=== PATIENT | female | born 1965 | race Caucasian/White ===

== ENCOUNTER 2025-02-21 03:59 | Inpatient (IN) | payer BC ==
[~2025-02-21] VITALS: Ht 166.4 cm; Wt 106.8 kg
[2025-02-21] VITALS (20 sets, daily range): BP systolic 113–142; BP diastolic 52–74; PULSE 62–93; RESP 14–23; TEMP 97.8–98.2; O2SAT 93–97
[2025-02-21 04:33] LABS: MEAN PLATELET VOLUME 8.9 FL (7.4-10.4); RED CELL DISTRIBUTION WIDTH 13.2 % (11.5-14.5)
[2025-02-21 04:35] LABS: LEUKOCYTE ESTERASE ,URINE NEGATIVE (Neg); NITRITES, URINE NEGATIVE (Neg); OCCULT BLOOD,URINE TRACE-INTACT (Neg); URINE HCG NEGATIVE (NEG)
[2025-02-21 04:37] LABS: UA COLLECTION TYPE NON-SPECIFIED
[2025-02-21 04:50] LABS: CREATININE 0.70 MG/DL (0.40-0.90); TOTAL CARBON DIOXIDE 23.3 MMOL/L (24-32); eCRCL 77 ML/MIN; eGFR 85 ML/MIN
[2025-02-21 04:52] LABS: SQUAMOUS EPITHELIAL CELL,UR FEW /LPF (FEW)
[2025-02-21] MEDS ORDERED: iohexol 300mg/ml 100ml inj. ONE (05:00)
--- NOTE | 2025-02-21 05:17 | Physician Documentation ---
History of Present Illness Chief Complaint: Abdominal Pain Stated Complaint: HERNIA PAIN Time Seen by MD: 04:55 Mode of Arrival: POV HPI 59 year old female reports abdominal pain since last night. She has a history of a failed hernia mesh repair. The hernia normally is easily reducible, but she has not been able to reduce it since the pain started. Denies fever, reports nausea but no vomiting, and denies diarrhea, cough, shortness of breath. Medication Reconciliation Allergies: Coded Allergies: No Known Allergies (Unverified , 02/21/25) Review of Systems All Other Systems at this time: Reviewed and Negative Physical Exam Vital Signs: RN Vital Signs have been reviewed: Yes, Temperature: 98.0, Source: Temporal, Heart Rate: 90, Respiratory Rate: 16, BP: 161/82, Pulse Oximetry: 98, Weight: 106.600 Oxygen Flow Rate: 0 Physical Exam Gen: no distress HEENT: PERRL, EOMI Pulm: no distress CTAB Cardiac: RRR no m/c/r Abdomen: soft, [id number] hernia which is not reducible MSK: no deformity Skin: w/d/i Neuro: nonfocal Psych: unremarkable Progress Results/Orders Results/Orders Orders - ANDREI SHIRLEY MD Abdomen,Single View(Kub) (02/21/25 04:25) Ct Abdomen Pelvis (02/21/25 04:55) Lacticsepsis (02/21/25 04:58) Normal Saline 1000ml (0.9% Sodium Chlori (02/21/25 05:00) Completed Orders - ANDREI SHIRLEY MD Hcg, Ur Ql (02/21/25 04:07) Cbc/Diff (02/21/25 04:07) BMP (02/21/25 04:07) Lipase (02/21/25 04:07) CMP (02/21/25 04:07) Abdomen,Single View(Kub) (02/21/25 04:25) Ua W/Microscopic, Cult If Ind (02/21/25 04:18) Hydromorphone 1 Mg/Ml/Pf (Dilaudid Inj.) (02/21/25 05:00) Iohexol 300mg/Ml 100ml Inj. (Omnipaque-3 (02/21/25 05:00) Vital Signs 02/21/25 02/21/25 04:03 04:37 Temp 98.0 Pulse 90 Resp 16 B/P (MAP) 161/82 Pulse Ox 98 O2 Flow Rate 0 Laboratory Tests Test 02/21/25 04:13 02/21/25 04:18 White Blood Count 13.7 H Red Blood Count 4.69 Hemoglobin 13.8 Hematocrit 41.0 Mean Corpuscular Volume 87.4 Mean Corpuscular Hemoglobin 29.4 Mean Corpuscular Hemoglobin Concent 33.6 Red Cell Distribution Width 13.2 Platelet Count 305 Mean Platelet Volume 8.9 Neutrophils (%) (Auto) 83.4 H Lymphocytes (%) (Auto) 11.7 L Monocytes (%) (Auto) 4.1 Eosinophils (%) (Auto) 0.3 Basophils (%) (Auto) 0.5 Neutrophils # (Auto) 11.4 H Lymphocytes # (Auto) 1.6 Monocytes # (Auto) 0.6 Eosinophils # (Auto) 0.0 Basophils # (Auto) 0.1 CBC Comment Sodium Level 136 Potassium Level 3.8 Chloride Level 103 Carbon Dioxide Level 23.3 L Anion Gap 10 Blood Urea Nitrogen 12 Creatinine 0.70 Estimated GFR/1.73 m2 85 BUN/Creatinine Ratio 17.1 Glucose Level 214 H Calcium Level 9.2 Total Bilirubin 0.8 Aspartate Amino Transf (AST/SGOT) 28 Alanine Aminotransferase (ALT/SGPT) 38 Alkaline Phosphatase 94 Total Protein 7.7 Albumin 4.0 Globulin 3.7 Albumin/Globulin Ratio 1.1 Lipase 25 Chemistry Comments Urine Specimen Description Non-specified Urine Color Yellow Urine Clarity Clear Urine pH 5.5 Urine Specific Lewis 1.025 Urine Protein Negative Urine Glucose (UA) 100 H Urine Ketones Trace H Urine Occult Blood Trace-intact Urine Nitrite Negative Urine Bilirubin Negative Urine Urobilinogen 0.2 Urine Leukocyte Esterase Negative Urine RBC 0-2 Urine WBC None seen Urine Squamous Epithelial Cells Few Urine Bacteria None seen Urine Culture Indicated Not ind Volume Urine Centrifuged 10 ml Urine HCG, Qualitative Negative Urine Comment Medical Decision Making Additional information obtaine: N/A Findings 59 year old female with abdominal pain and likely incarcerated hernia. Workup demonstrated leukocytosis. Plain film nonspecific, awaiting CT results but by my interpretation demonstrates periumbilical hernia with some fat stranding. IVF and pain meds, will contact surgeon diamond grinder and transfer care to hospitalist. Differential Dx:Considerations: Appendicitis, Bowel obstruction, Cholelithasis, Diverticular disease, Esophagitis, Gastritis/PUD, Gastroenteritis, Hernia, Hepatitis, Inflammatory BD, Ischemic bowel, Pancreatitis, Urinary obstruction, Urinary tract infection Departure Disposition: 09 ADMITTED INPATIENT Admitted to Inpatient Unit: to hospitalist, to surgeon Admission Level of Care: Med/Surg Impression: Primary Impression: Incarcerated hernia Condition: Stable Referrals: NO PRIMARY CARE PROVIDER (PCP) Education Educated: Patient Educated regarding: diagnosis, treatment, prognosis, need for follow up Signature Scribe Signature: . Attestation: . ANDREI SHIRLEY MD Feb 21, 2025 05:17
[2025-02-21] MEDS: normal saline 1000ml 1,000 ML IV ONE (05:24)
--- NOTE | 2025-02-21 06:16 | Physician Documentation ---
Addendum Received patient in sign out from outgoing ED physician, Dr. Estrella. Please see their note (and other providers) for further specific details regarding initial encounter. HPI/Course In Brief: 59 year old female reports abdominal pain since last night. She has a history of a failed hernia mesh repair (repair was done in [place] about eight years ago, began having episodes of herniation around five years ago). The hernia normally is easily reducible, but she has not been able to reduce it since the pain started (about 10:00 p.m. yesterday). Denies fever, reports nausea but no vomiting, and denies diarrhea, cough, shortness of breath. She last ate yesterday about 3:00 a.m. in the afternoon. Last bowel movement was yesterday. ED COURSE: 02/21/2025, 7:55 a.m.: I spoke with our surgeon on-call, Dr. Zuluaga who said he would come in in approximately 1 hour and take the patient to the OR. I Informed the patient of: 1. Nature of abnormal findings 2. Implications of the findings 3. Possible consequences of not receiving additional diagnosis and/or treatment, or following the current treatment plan. 4. Explanation of management options and provision of appropriate referral resources as indicated 5. Their responsibility to receive follow-up care Discussed harm reduction to this emergency department visit today. Patient expresses understanding and agrees to plan. All questions answered to the best of my ability. Discharged in stable condition with strict ED return precautions and close outpatient follow-up with primary care. EMR and [employer] Attestation - this medical document was created using an [employer] medical record system with [employer] computerized dictation system. Although this document has been carefully reviewed, there may still be some phonetic and typographical errors. These errors are purely typographical, due to imperfections of the software programs, and do not reflect any compromise in the patient's medical care. Note to Patients: Physician notes are written for the purpose of communication between medical providers and billing purposes. There may be aspects of this documentation that are simplified for efficiency and clarity. Physician notes are not intended to capture the entirety of your experience in the hospital. If you have questions about the way your medical condition and care was documented, please do not hesitate to bring this up at your next visit with your physician. Departure Disposition: 09 ADMITTED INPATIENT Admitted to Inpatient Unit: to hospitalist, to surgeon Admission Level of Care: Med/Surg Impression: Primary Impression: Incarcerated hernia Condition: Fair ERIC TENORIO MD Feb 21, 2025 06:16
--- NOTE | 2025-02-21 06:38 | RADIOLOGY REPORT ---
Date: 02/21/2025 04:23 AM Examination: DI ABDOMEN,SINGLE VIEW(KUB) History: Abdominal Pain COMPARISON: None TECHNIQUE: Frontal views of the abdomen was obtained. FINDINGS: Bowel gas pattern is unremarkable. The lung bases are unremarkable. No acute osseous abnormality identified. IMPRESSION: Nonobstructive bowel gas pattern. Large stool burden
--- NOTE | 2025-02-21 06:45 | RADIOLOGY REPORT ---
EXAM: CT CT ABDOMEN PELVIS W/ IV CONTRAST History: abdominal pain pt has HX of hernia COMPARISON: DI ABDOMEN,SINGLE VIEW(KUB) on DOS: 02/21/25 TECHNIQUE: Multidetector spiral CT of the abdomen and pelvis was performed from lung bases to pubic symphysis. Intravenous contrast was administered during this examination. Portal venous imaging was obtained. Axial, coronal and sagittal multiplanar reformats were performed by the technologist on a separate workstation. Radiation Dose : 1. Abdomen/Pelvis: CTDIvol 36.7 mGy, DLP 1853 mGy*cm. FINDINGS: Lung Bases: No acute or significant lung base finding. Mild left basilar atelectasis. Normal heart size. No pleural or pericardial effusion. Liver: Unremarkable Gallbladder and Biliary Tree: Cholecystectomy. No biliary ductal dilatation Spleen: Unremarkable Pancreas: Unremarkable Adrenal Glands: Unremarkable Kidneys: Simple left-sided parapelvic renal cyst. Kidneys are otherwise unremarkable. Bladder: Unremarkable Bowel: Small hiatal hernia. There is moderate sized right periumbilical hernia containing short segment of mildly dilated small bowel loops, favored to represent a partial obstruction. Scattered colonic diverticulosis. No diverticulitis Remainder of the bowel is unremarkable. Normal appendix. Ascites: Absent Lymphadenopathy: No mesenteric, retroperitoneal or periportal lymphadenopathy. Vasculature: The visualized abdominal aorta is normal in size and caliber. Abdominal and pelvic vessels demonstrate normal enhancement. Pelvic Organs: Hysterectomy. No adnexal masses. Musculoskeletal: No aggressive focal bony lesions, acute fractures or dislocation. IMPRESSION: Moderate-sized right periumbilical hernia containing short segment of mildly dilated small bowel loops, favored to represent a partial small-bowel obstruction. Small hiatal hernia. Scattered colonic diverticulosis. No diverticulitis Hysterectomy Cholecystectomy Radiation optimization: All CT scans at this facility use at least one of these dose optimization techniques: automated exposure control mA and/or kV adjustment per patient size (includes targeted exams where dose is matched to clinical indication) or iterative reconstruction.
[2025-02-21] MEDS ORDERED: NO HOME MEDS (08:05)
[2025-02-21] MEDS ORDERED: magnesium sulf-water 4G/100mL 100 ML IV PRN (08:15)
[2025-02-21] MEDS ORDERED: bisacodyl 10mg suppository rectal RC PRN (08:15)
[2025-02-21] MEDS ORDERED: magnesium hydroxide 30ml (MOM) UD suspension PO PRN (08:15)
[2025-02-21] MEDS ORDERED: magnesium sulf-water 2g/50mL 50 ML IV PRN (08:15)
[2025-02-21] MEDS ORDERED: acetaminophen 650mg rectal suppository RC PRN (08:15)
[2025-02-21] MEDS ORDERED: ondansetron/PF 4mg/2ml inj IV PRN ×2 (08:15→10:15)
[2025-02-21] MEDS ORDERED: mag hydrox/Alum hydrox/simeth 30ml oral suspension PO PRN (08:15)
[2025-02-21] MEDS ORDERED: magnesium Cl slow-release 64mg tablet PO PRN (08:15)
[2025-02-21] MEDS ORDERED: potassium Cl 20 mEq SR tablet PO PRN ×2 (08:15)
[2025-02-21] MEDS ORDERED: HYDROcodone/acetaminophen 5mg/325mg tablet PO PRN (08:15)
[2025-02-21] MEDS: normal saline 1000ml 1,000 ML IV SCH (08:29)
--- NOTE | 2025-02-21 08:30 | HISTORY AND PHYSICAL ---
History & Physical Providers to Chief complaint, abdominal pain, nausea, constipation ~ History of Present Illness Reason for Admit\Complaint: As above History of Present Illness This is a 59 year old female, relatively in good health on no home medication with history over inguinal hernia repair which failed, history of hypertension uncontrolled, morbid obesity BMI 39, chronic constipation, status post cholecystectomy hysterectomy, hiatal hernia, diverticulosis, presented today to emergency department chief complaint abdominal pain associated with nausea and constipation; in addition patient reports abdominal pain since last night. She has a history of a failed hernia mesh repair (repair was done in [place] about eight years ago, began having episodes of herniation around five years ago). The hernia normally is easily reducible, but she has not been able to reduce it since the pain started (about 10:00 p.m. yesterday). Denies fever, reports nausea but no vomiting, and denies diarrhea, cough, shortness of breath.She last ate yesterday about 3:00 a.m. in the afternoon. Last bowel movement was yesterday. Moment she was evaluated by physician including CT abdomen pelvis completed, diagnosed with a small-bowel obstruction, incarcerated [place] umbilical hernia, and after consultation with the general surgeon decision was made to admit patient for further evaluation and treatment including to be taken to OR for hernia repair. No additional complaint or concern Allergies: Coded Allergies: No Known Allergies (Unverified , 02/21/25) Active prescriptions Non Home Medications Home Medications Active Reported No Home Medications (Home Med List) Each Past Medical History Past Medical History As in HPI Past Surgical History Surgical History Comment As in HPI Past Social History Social History Comment Deny illicit drug abuse tobacco alcohol use live with the family good social support Health Maintenance Health Maintenance Noncontributory ROS ROS Constitutional : no fever , no chills, or weakness. No diaphoresis. Allergic/Immunologic, no lymphadenopathy, no hives, no skin eruptions. Eyes, no recent visual changes, no eye pain, no photophobia. Ears, nose, mouth, throat, no sore throat, no nosebleed, no ear pain. Cardiovascular, no palpitations, skipped beats, chest pain, no peripheral edema, Respiratory, no dyspnea, orthopnea, cough, hemoptysis, chest wall pain. Gastrointestinal, positive for abdominal pain, nausea, constipation. : no dysuria, hematuria, pelvic pain, urethral d/c. Endocrine, no polyuria, polydipsia, recent unintentional weight gain or loss. Hematologic/Lymphatic, no petechiae, no enlarged lymph nodes, no bone pain. Integumentary, no rash, no skin lesions, Musculoskeletal, no muscle aches, or pain, no muscle cramps, no recent change in gait Neurological, no dizziness, no headache, no syncope, no paresthesia. Psychiatric, no delusions, visual hallucinations, or hearing hallucinations. ROS - in rest is as in HPI. Exam Vitals: Vital Signs Date Time Temp Pulse Resp B/P (MAP) Pulse Ox O2 Delivery O2 Flow Rate FiO2 02/21/25 08:04 80 16 135/82 (99) 95 0 02/21/25 05:29 98.0 Vital signs, stable ,afebrile. Pulse Oximetry reflects adequate oxygenation. BMI is 39, weight 106 kg General: well developed, well nourished. Awake , alert, and oriented x4, resting comfortably in the bed, in no acute distress . Skin: Warm, dry, no pallor, no rash or petechiae. HEENT: Atraumatic, normocephalic, EOMI, anicteric sclera B; pink conjunctiva; PERRLA, normal oropharynx, moist oral and nasal mucosa. Tympanic membrane , nose , throat clear. Neck: Trachea midline. Supple, full range of motion, no JVD, bruit , hepatojugular reflex , lymphadenopathy or masses, or other lesions Cardiac: Regular rhythm, regular rate no murmurs, rubs, or gallops. Normal S1 and S2, no S3 noticed. PMI is normal. Respiratory: Equal breath sounds bilaterally, no tachypnea; lungs clear to auscultation bilaterally, no wheezing ,rub or rales, or crackles. Chest wall is symmetric and without deformity. No signs of trauma. Chest wall is nontender. No signs of respiratory distress. Resonance is normal upon percussion bilaterally. Gastrointestinal: Abdomen symmetric, non-distended, soft, mild tender to palpation periumbilically, normal bowel sounds x4 quadrant, normoactive, no hepatosplenomegaly , no masses , no bruit, no flank pain bilaterally. No voluntary guarding, rebound, or rigidity. No tenderness to percussion. No pulsatile masses. Equal femoral pulses. No Tucker's sign or McBurney point tenderness. Back; no CVA tenderness bilaterally, no deformities. Neck and back are without deformity as well. No tenderness noted on palpation of the spinous processes. Spinous processes are midline. Cervical, thoracic, and lumbar paraspinal muscles are not tender and are without spasm. : Not indicated Musculoskeletal: Extremities, normal range of motion, non-tender, muscle strength 5/5 x 4. Negative Homans signs bilaterally on lower extremity. Distal pulses full symmetrical, no clubbing, cyanosis , edema. Neurological: Speech is clear, alert, and oriented x 4. No motor or sensory deficit, deep tendon reflexes normal, cerebellar intact. Cranial nerves II-XII intact. Psych: Alert and or appropriate, normal affect. Vascular: Good distal pulses, which are equal x4; capillary refill less than 2 seconds. Lymphatic, no lymphadenopathy. Diagnostic Data Last Recorded Lab Results: 02/21/2541202/21/25412 Advance Care Planning Advanced Care plannin - 30 Minutes Additional Plan Assessment Acute abdominal pain Nausea Incarcerated periumbilical hernia Small-bowel obstruction Chronic constipation in exacerbation Status post failed inguinal hernia repair with mesh Hypertension uncontrolled Morbid obesity BMI 39 Mild leukocytosis Dehydration associated with ketonuria Additional comorbidities, history of cholecystectomy hysterectomy hiatal hernia, diverticulosis Plan IV fluids keep patient well hydrated euvolemic Patient NPO Pain control IV analgesics IV Protonix Laxatives General surgeon is on the case we will take patient to OR today Additional lab work pending PT evaluation and treatment I reconciled home medications DVT gastropathy prophylaxis addressed Sepsis Screening Reassessment Date: Feb 21, 2025 Date of Service: Feb 21, 2025 Billing Provider: KEVIN MARTINEZ MD Common Visit Codes: [id number] INP/OBS CARE (HIGH) Secondary Visit Codes: [id number] CARE PLAN 30 MINUTES KEVIN MARTINEZ MD Feb 21, 2025 08:30
[2025-02-21] MEDS: ondansetron/PF 4mg/2ml inj IV ONE (08:35)
[2025-02-21 08:59] LABS: APTT 24 SECONDS (22-32); INR 1.0 INR
--- NOTE | 2025-02-21 09:05 | ELECTROCARDIOGRAPH REPORT ---
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 EVA Ty Measurements Intervals Milligan Rate: 79 P: 60 AR: 172 QRS: 6 QRSD: 98 T: 27 QT: 377 QTc: 433 Interpretive Statements Sinus rhythm Ventricular premature complex Probable left atrial enlargement Borderline T abnormalities, anterior leads Electronically Signed On 02-22-2025 17:41:[address] EVA Ty Please click the below link to view image of tracing.
[2025-02-21 09:10] LABS: PHOSPHORUS 3.6 MG/DL (2.3-4.5); PRO BRAIN NATRIURETIC PEPTIDE 130.0 PG/ML (0-125)
--- NOTE | 2025-02-21 09:23 | RADIOLOGY REPORT ---
CLINICAL INFORMATION: Preoperative examination. TECHNIQUE: Single AP portable chest radiograph was obtained. COMPARISON: None FINDINGS: Lungs: Atelectasis in the lung bases. No focal consolidation. Cardiac: Heart size is within normal limits. Pulmonary vasculature: Unremarkable. Mediastinum/berna: Unremarkable. Bones: No acute osseous abnormality identified. Other: No other significant findings. IMPRESSION: No evidence of acute disease in the chest.
[2025-02-21] MEDS ORDERED: BUPIVAcaine/PF 2.5mg/ml (0.25%) 10ml vial ONE (09:33)
[2025-02-21] MEDS ORDERED: BUPIVACAINE liposomal/PF 13.3 MG/ML 10mL vial IM ONE (09:34)
[2025-02-21] MEDS ORDERED: rocuronium 10mg/ml inj IV ONE (10:09)
[2025-02-21] MEDS ORDERED: propofol inj 20 ML IV ONE (10:09)
[2025-02-21] MEDS ORDERED: midazolam 1 mg/ML 2ml injection ONE (10:11)
[2025-02-21] MEDS ORDERED: fentaNYL /PF 50mcg/ml 5ml ampule ONE (10:11)
[2025-02-21] MEDS ORDERED: hydrALAZINE 20mg/ml inj. IV PRN (10:15)
[2025-02-21] MEDS ORDERED: fentaNYL/PF 50MCG/1 ML 2ML syringe IV PRN ×2 (10:15)
[2025-02-21] MEDS ORDERED: labetalol 20mg/4ml (5mg/ml) syringe IV PRN (10:15)
[2025-02-21] MEDS ORDERED: morphine 4 MG/ML inj SYRINge IV PRN (10:15)
--- NOTE | 2025-02-21 10:25 | PROGRESS NOTE ---
Progress Note ID Providers to CC ~ Progress Note Progress Note: pt seen and examined-findings consistent with incarcerated recurrent umbilical hernia with sbo-pt needs robo-possible repair-discussed procedure including risks/benefits/alternatives VANESA PURVIS MD Feb 21, 2025 10:25
[2025-02-21] MEDS ORDERED: vancomycin 1,000mg inj ONE (11:58)
[2025-02-21] MEDS ORDERED: dexamethasone sod phosphate 4mg/ml inj. ONE (12:40)
[2025-02-21] MEDS ORDERED: ondansetron/PF 4mg/2ml inj ONE (12:40)
[2025-02-21] MEDS ORDERED: glycopyrrolate 0.2mg/ml inj ONE (12:41)
--- NOTE | 2025-02-21 13:13 | OPERATIVE REPORT ---
Operative Report Providers to CC ~ Date of Procedure: Feb 21, 2025 Pre-Operative Diagnosis: recurrent umbilical hernia with sbo Post-Operative Diagnosis SAME as PRE-Op Procedure Performed robo repair recurrent incarcerated umbilical hernia/dex Surgeon: nick Shah none Anesthesiologist: Christiano Hammonds Findings: incarcerated recurrent umbilical hernia/extensive adhesions Estimated Blood Loss: min Specimen Removed: omentum with mesh VANESA PURVIS MD Feb 21, 2025 13:13
[2025-02-21] MEDS ORDERED: HYDROmorphone inj. 0.5 MG/0.5 ML DISP.SYRIN IV PRN (13:20)
[2025-02-21] MEDS ORDERED: ketorolac trometh 30MG/ML vial 30 MG/ML VIAL IV PRN (13:20)
[2025-02-21] MEDS: acetaminophen 1,000mg/100ml IV 100 ML IV PRN (13:39)
[2025-02-21] MEDS: ringers solution, lacted 1,000 ML IV SCH (14:11)
[2025-02-21] MEDS: ceFOXitin 2GM-NS 100mL ADDvant 100 ML IV SCH (15:22)
[2025-02-21] MEDS: K and/or MAG REPLACEMENT MC SCH (19:50)
[2025-02-21] MEDS: docusate sod 100mg capsule PO SCH (20:06)
[2025-02-22 02:00] VITALS: BP 120/62; PULSE 77; RESP 16; TEMP 98.2; O2SAT 97
[2025-02-22 05:49] LABS: MEAN PLATELET VOLUME 9.1 FL (7.4-10.4); RED CELL DISTRIBUTION WIDTH 13.2 % (11.5-14.5)
[2025-02-22 06:14] LABS: CREATININE 0.68 MG/DL (0.40-0.90); TOTAL CARBON DIOXIDE 27.0 MMOL/L (24-32); eCRCL 79 ML/MIN; eGFR 88 ML/MIN
--- NOTE | 2025-02-22 07:12 | CONSULTATION ---
DATE OF CONSULTATION: 02/21/2025 DICTATING PHYSICIAN: Sudheer Zuluaga MD REASON FOR CONSULTATION: Recurrent umbilical hernia. HISTORY OF PRESENT ILLNESS: The patient is a 59-year-old female with history of hypertension who had an umbilical hernia repaired 8 to 10 years ago. The patient developed episode of recurrence. She presented to the ER with complaints of abdominal discomfort and the inability to reduce the recurrent umbilical hernia. Surgical evaluation is now requested. On further questioning, the patient states the pain is improved now compared to what it was. She had the hernia repaired, she believes laparoscopically. They have used mesh with the abdominal surgery. PAST MEDICAL HISTORY: Hypertension, obesity, diverticulosis. PAST SURGICAL HISTORY: Hernia repair as outlined above, previous cholecystectomy, hysterectomy. HOME MEDICATIONS: None. ALLERGIES: None. SOCIAL HISTORY: No alcohol or drug use. PHYSICAL EXAMINATION: GENERAL: Well-nourished female, in no distress. VITAL SIGNS: Unremarkable. HEART: Regular rate and rhythm. LUNGS: Clear to auscultation. ABDOMEN: Shows a recurrent umbilical hernia, which appears to be incarcerated. Minimal tenderness at the present time. EXTREMITIES: Unremarkable. NEUROLOGIC: Nonfocal. LABORATORY DATA: WBC 13, hematocrit 41, platelet count is 305. Chemistries: CO2 is 23, lactate 1.3. LFTs are unremarkable. IMAGING STUDIES: CT of the abdomen and pelvis confirms the presence of recurrent umbilical hernia with probable small bowel obstruction. IMPRESSION: * Recurrent incarcerated umbilical hernia with small bowel obstruction. * Hypertension. * Obesity. RECOMMENDATIONS: Surgical repair. Sudheer Zuluaga MD TID: [id number] RECEIPT: [id number] KB/YEL
[2025-02-22 08:00] VITALS: RESP 16; O2SAT 95
--- NOTE | 2025-02-22 08:10 | OPERATIVE REPORT ---
DATE OF SURGERY: 02/21/2025 DICTATING PHYSICIAN: Sudheer Zuluaga MD PREOPERATIVE DIAGNOSIS: Incarcerated recurrent umbilical hernia with small bowel obstruction. POSTOPERATIVE DIAGNOSIS: Incarcerated recurrent umbilical hernia with small bowel obstruction. PROCEDURES PERFORMED: Robotic repair of incarcerated recurrent umbilical hernia with lysis of adhesions. SURGEON: Sudheer Zuluaga MD SUGAR CANE PLANTER: None. ANESTHESIA: General/Dr. Hammonds. DRAINS: None. INDICATIONS FOR OPERATION: A 59-year-old female with a history of a previous umbilical hernia repair with evidence of recurrence, presented to the ER for evaluation and was taken to surgery for surgical repair. INTRAOPERATIVE FINDINGS: The patient had multiple fascial defects, the total diameter of which was more than 10 cm. Bowel was present, but the bowel was viable after it was reduced. The patient had some old mesh, which was removed with underlying omentum. DESCRIPTION OF PROCEDURE: The patient was placed supine on the operating room table. After induction of general anesthesia and placement of an endotracheal tube, the abdomen was prepped and draped. A subxiphoid incision was then made and a Vivek port placed using open technique. Pneumoperitoneum was begun by insufflation of CO2. Additional ports were placed in the left lateral abdomen. Ports were placed under laparoscopic vision. The robot was then brought to the field. The camera port was docked. The camera was placed and the camera was targeted. Additional ports were then docked and instruments placed. The abdomen was then explored. The patient had extensive adhesions, and these were taken down using combination of sharp dissection and electrocautery. The small bowel, which was in one of the defects, was also reduced using gentle traction. The patient had multiple fascial defects that were subsequently defined. The defects were then closed using a running suture of 0 V-Loc. An 18-inch suture was used to close the defects. The suture line was then oversewn with a second 18-inch 0 V-Loc. Because of the extensive adhesions and concern for a possible enterotomy, mesh was not used. The then used to mobilize the mesh attached to the omentum. The abdomen was irrigated with a large amount of antibiotic-containing solution. Robotic instruments were removed, robot then removed from the field. Mesh and omentum were placed in an Endobag using the laparoscope. Ports were then removed. The mesh was removed through the Endobag. The pneumoperitoneum was evacuated. The wounds were closed in layers. The skin was closed with a subcuticular stitch and dressings were applied. The patient was transferred to recovery in stable condition. Sudheer Zuluaga MD TID: [id number] RECEIPT: [id number] KB/[facility]
[2025-02-22 10:00] VITALS: BP 116/61; PULSE 67; RESP 18; TEMP 97.1; O2SAT 94
[2025-02-22] MEDS: HYDROcodone/acetaminophen 10/325mg tab PO PRN (11:10)
[2025-02-22] MEDS ORDERED: metoclopramide 5 mg/ml inj IV PRN (11:25)
--- NOTE | 2025-02-22 12:03 | PROGRESS NOTE ---
Progress Note ID Providers to CC ~ Progress Note Progress Note: pain improving/vss/abd-min tenderness/labs noted a/p 1. s/p robo hernia repair-slow progress/add VANESA Ortega MD Feb 22, 2025 12:03
[2025-02-22 18:00] VITALS: BP 121/64; PULSE 68; RESP 19; TEMP 98; O2SAT 95
--- NOTE | 2025-02-22 19:59 | PROGRESS NOTE ---
Daily Progress Note Providers to CC ~ patient feels better today, pain well controlled after surgery Central Line/PICC still needed: No Salomon-Non Protocol Salomon Indications Met/Not Met: F/C Indications Not Met Antibiotic Timeout Antibiotic Ordered?: Yes MRSA Education MRSA Education Provided to pt: Yes Subjective As above Objective Vital Signs Date Time Temp Pulse Resp B/P (MAP) Pulse Ox O2 Delivery O2 Flow Rate FiO2 02/22/25 16:57 16 02/22/25 10:00 97.1 67 116/61 (79) 94 Room Air 02/22/25 08:00 3.0 Vital signs, stable ,afebrile. Pulse Oximetry reflects adequate oxygenation, 3 L oxygen nasal cannula General: well developed, well nourished. Awake , alert, and oriented x4, resting comfortably in the bed, in no acute distress . Skin: Warm, dry, no pallor, no rash or petechiae. HEENT: Atraumatic, normocephalic, EOMI, anicteric sclera B; pink conjunctiva; PERRLA, normal oropharynx, moist oral and nasal mucosa. Tympanic membrane , nose , throat clear. Neck: Trachea midline. Supple, full range of motion, no JVD, bruit , hepatojugular reflex , lymphadenopathy or masses, or other lesions Cardiac: Regular rhythm, regular rate no murmurs, rubs, or gallops. Normal S1 and S2, no S3 noticed. PMI is normal. Respiratory: Equal breath sounds bilaterally, no tachypnea; lungs clear to auscultation bilaterally, no wheezing ,rub or rales, or crackles. Chest wall is symmetric and without deformity. No signs of trauma. Chest wall is nontender. No signs of respiratory distress. Resonance is normal upon percussion bilaterally. Gastrointestinal: Abdomen symmetric, non-distended, soft, tender to palpation periumbilically, dressing clean dry intact, normal bowel sounds x4 quadrant, normoactive, no hepatosplenomegaly , no masses , no bruit, no flank pain bilaterally. No voluntary guarding, rebound, or rigidity. No tenderness to percussion. No pulsatile masses. Equal femoral pulses. No Tucker's sign or McBurney point tenderness. Back; no CVA tenderness bilaterally, no deformities. Neck and back are without deformity as well. No tenderness noted on palpation of the spinous processes. Spinous processes are midline. Cervical, thoracic, and lumbar paraspinal muscles are not tender and are without spasm. Musculoskeletal: Extremities, normal range of motion, non-tender, muscle strength 5/5 x 4. Negative Homans signs bilaterally on lower extremity. Distal pulses full symmetrical, no clubbing, cyanosis , edema. Neurological: Speech is clear, alert, and oriented x 4. No motor or sensory deficit, deep tendon reflexes normal, cerebellar intact. Cranial nerves II-XII intact. Psych: Alert and or appropriate, normal affect. Vascular: Good distal pulses, which are equal x4; capillary refill less than 2 seconds. Lymphatic, no lymphadenopathy. Result Diagram: 02/22/25 0417 02/22/25 0417 Coagulation Studies Laboratory Tests Test 02/21/25 08:34 Prothrombin Time 10.4 SECONDS (9.0-12.0) INR International Normalized Ratio 1.0 INR Activated Partial Thromboplast Time 24 SECONDS (22-32) Coagulation Comments Problem\Assessment\Plan Assessment Acute abdominal pain Nausea Incarcerated periumbilical hernia status post repair, postoperative day 1. Chronic constipation in exacerbation Status post failed inguinal hernia repair with mesh Hypertension uncontrolled Morbid obesity BMI 39 Mild leukocytosis Dehydration associated with ketonuria Additional comorbidities, history of cholecystectomy hysterectomy hiatal hernia, diverticulosis Plan IV fluids keep patient well hydrated euvolemic Patient medical conditions treated by surgeon Pain control IV analgesics IV Protonix Laxatives Additional lab work pending PT evaluation and treatment I reconciled home medications DVT gastropathy prophylaxis addressed Sepsis Screening Reassessment Date: Feb 22, 2025 Date of Service: Feb 22, 2025 Billing Provider: KEVIN MARTINEZ MD Common Visit Codes: [id number] INP/OBS CARE(HIGH) KEVIN MARTINEZ MD Feb 22, 2025 19:59
[2025-02-22 20:00] VITALS: RESP 18
[2025-02-22 22:00] VITALS: BP 111/52; PULSE 81; RESP 16; TEMP 97.3; O2SAT 94
[2025-02-23 05:00] LABS: CREATININE 0.73 MG/DL (0.40-0.90); TOTAL CARBON DIOXIDE 27.1 MMOL/L (24-32); eCRCL 75 ML/MIN; eGFR 81 ML/MIN
[2025-02-23 05:08] LABS: MEAN PLATELET VOLUME 8.9 FL (7.4-10.4); RED CELL DISTRIBUTION WIDTH 13.5 % (11.5-14.5)
[2025-02-23 06:00] VITALS: BP 116/56; PULSE 78; RESP 16; TEMP 97.9; O2SAT 93
[2025-02-23 08:00] VITALS: RESP 16; O2SAT 93
[2025-02-23 10:00] VITALS: BP 126/66; PULSE 72; RESP 15; TEMP 97.6; O2SAT 92
--- NOTE | 2025-02-23 11:05 | PATHOLOGY REPORT ---
[facility] [address] [place] [address] SURGICAL PATHOLOGY REPORT CaseNumber: [id number] Surgeon:Sudheer Zuluaga M.D. CLINICAL INFORMATION CLINICAL INFORMATION: Hernia Pain. DIAGNOSIS DIAGNOSIS: OMENTUM AND MESH, SURGICAL RESECTION - HISTOLOGICALLY UNREMARKABLE OMENTAL TISSUE - ASSOCIATED MESH MATERIAL GROSSLY DESCRIBED MICROSCOPIC DESCRIPTION MICROSCOPIC DESCRIPTION: Reviewed is a single H&E-stained slide showing sections of lobulated adipose tissue that are histologically unremarkable. GROSS DESCRIPTION GROSS DESCRIPTION: Received in a container of formalin labeled with the patient's name, number, and "omentum and mesh" is a 292 g aggregate of and mesh material measuring 15 x 15 x 3 cm. Sectioning fails to reveal a discrete mass lesion. Top Closer sections are submitted as A1. The time at which the specimen was removed was 1235. The time at which the specimen was placed in formalin was 1238. ([facility]) Electronically signed by: Chris Dominguez M.D. 02/23/2025 10:34:00 AM
[2025-02-23] MEDS: potassium Cl 40MEQ/1/2NS 520ml 520 ML IV PRN (11:17)
[2025-02-23] MEDS: diphenhydrAMINE 2%/zinc acetate cream TP SCH (13:37)
--- NOTE | 2025-02-23 14:24 | PROGRESS NOTE ---
Progress Note ID Providers to CC ~ Progress Note Progress Note: doing well/advance diet VANESA PURVIS MD Feb 23, 2025 14:24
[2025-02-23 18:00] VITALS: BP 139/66; PULSE 69; RESP 16; TEMP 97.4; O2SAT 95
[2025-02-23 20:00] VITALS: RESP 18; O2SAT 98
--- NOTE | 2025-02-23 20:01 | PROGRESS NOTE ---
Daily Progress Note Providers to CC No new complaint today, resting comfortably in the bed ~ Central Line/PICC still needed: No Salomon-Non Protocol Salomon Indications Met/Not Met: F/C Indications Not Met Antibiotic Timeout Antibiotic Ordered?: Yes MRSA Education MRSA Education Provided to pt: Yes Subjective As above Objective Vital Signs Date Time Temp Pulse Resp B/P (MAP) Pulse Ox O2 Delivery O2 Flow Rate FiO2 02/23/25 16:40 17 02/23/25 15:20 Room Air 02/23/25 10:00 97.6 72 126/66 (86) 92 02/23/25 08:00 0.0 02/23/25 01:15 96 Vital signs, stable ,afebrile. Pulse Oximetry reflects adequate oxygenation. General: well developed, well nourished. Awake , alert, and oriented x4, resting comfortably in the bed, in no acute distress . Skin: Warm, dry, no pallor, no rash or petechiae. HEENT: Atraumatic, normocephalic, EOMI, anicteric sclera B; pink conjunctiva; PERRLA, normal oropharynx, moist oral and nasal mucosa. Tympanic membrane , nose , throat clear. Neck: Trachea midline. Supple, full range of motion, no JVD, bruit , hepatojugular reflex , lymphadenopathy or masses, or other lesions Cardiac: Regular rhythm, regular rate no murmurs, rubs, or gallops. Normal S1 and S2, no S3 noticed. PMI is normal. Respiratory: Equal breath sounds bilaterally, no tachypnea; lungs clear to auscultation bilaterally, no wheezing ,rub or rales, or crackles. Chest wall is symmetric and without deformity. No signs of trauma. Chest wall is nontender. No signs of respiratory distress. Resonance is normal upon percussion bilaterally. Gastrointestinal: Abdomen symmetric, non-distended, soft, non-tender, normal bowel sounds x4 quadrant, normoactive, dressing clean dry intact no hepatosplenomegaly , no masses , no bruit, no flank pain bilaterally. No voluntary guarding, rebound, or rigidity. No tenderness to percussion. No pulsatile masses. Equal femoral pulses. No Tucker's sign or McBurney point tenderness. Back; no CVA tenderness bilaterally, no deformities. Neck and back are without deformity as well. No tenderness noted on palpation of the spinous processes. Spinous processes are midline. Cervical, thoracic, and lumbar paraspinal muscles are not tender and are without spasm. Musculoskeletal: Extremities, normal range of motion, non-tender, muscle strength 5/5 x 4. Negative Homans signs bilaterally on lower extremity. Distal pulses full symmetrical, no clubbing, cyanosis , edema. Neurological: Speech is clear, alert, and oriented x 4. No motor or sensory deficit, deep tendon reflexes normal, cerebellar intact. Cranial nerves II-XII intact. Psych: Alert and or appropriate, normal affect. Vascular: Good distal pulses, which are equal x4; capillary refill less than 2 seconds. Lymphatic, no lymphadenopathy. Result Diagram: 02/23/2542002/23/25420 Coagulation Studies Laboratory Tests Test 02/21/25 08:34 Prothrombin Time 10.4 SECONDS (9.0-12.0) INR International Normalized Ratio 1.0 INR Activated Partial Thromboplast Time 24 SECONDS (22-32) Coagulation Comments Problem\Assessment\Plan Assessment Acute abdominal pain Nausea Incarcerated periumbilical hernia status post repair, postoperative day 2. Chronic constipation in exacerbation Status post failed inguinal hernia repair with mesh Hypertension uncontrolled Morbid obesity BMI 39 Mild leukocytosis Dehydration associated with ketonuria Additional comorbidities, history of cholecystectomy hysterectomy hiatal hernia, diverticulosis Plan IV fluids keep patient well hydrated euvolemic Patient medical conditions treated by surgeon Pain control IV analgesics IV Protonix Laxatives and Reglan Additional lab work pending PT evaluation and treatment I reconciled home medications DVT gastropathy prophylaxis addressed Sepsis Screening Reassessment Date: Feb 23, 2025 Date of Service: Feb 23, 2025 Billing Provider: KEVIN MARTINEZ MD Common Visit Codes: [id number] INP/OBS CARE(HIGH) KEVIN MARTINEZ MD Feb 23, 2025 20:01
[2025-02-23 22:00] VITALS: BP 153/67; PULSE 65; RESP 16; TEMP 98.3; O2SAT 97
[2025-02-24 05:02] LABS: MEAN PLATELET VOLUME 8.4 FL (7.4-10.4); RED CELL DISTRIBUTION WIDTH 12.8 % (11.5-14.5)
[2025-02-24 05:15] LABS: CREATININE 0.67 MG/DL (0.40-0.90); TOTAL CARBON DIOXIDE 24.8 MMOL/L (24-32); eCRCL 82 ML/MIN; eGFR 90 ML/MIN
[2025-02-24 07:24] VITALS: BP 122/60; PULSE 72; RESP 16; TEMP 98.3; O2SAT 97
[2025-02-24 10:00] VITALS: BP 137/70; PULSE 75; RESP 18; TEMP 98.6; O2SAT 94
[2025-02-24] MEDS: magnesium citrate 296ml oral solution PO ONE (13:13)
--- NOTE | 2025-02-24 16:19 | PROGRESS NOTE ---
Progress Note ID Providers to CC ~ Progress Note Progress Note: doing well/advance diet VANESA PURVIS MD Feb 24, 2025 16:19
[2025-02-24 18:00] VITALS: BP 137/71; PULSE 78; RESP 18; TEMP 98.5; O2SAT 96
[2025-02-24] MEDS: magnesium hydroxide 30ml (MOM) UD suspension PO SCH (19:54)
[2025-02-24 20:00] VITALS: RESP 18; O2SAT 96
--- NOTE | 2025-02-24 20:27 | PROGRESS NOTE ---
Daily Progress Note Providers to CC Feels better today pain well controlled release flatus Central Line/PICC still needed: No Salomon-Non Protocol Salomon Indications Met/Not Met: F/C Indications Not Met Antibiotic Timeout Antibiotic Ordered?: Yes MRSA Education MRSA Education Provided to pt: Yes Subjective As above Objective Vital Signs Date Time Temp Pulse Resp B/P (MAP) Pulse Ox O2 Delivery O2 Flow Rate FiO2 02/24/25 10:31 Room Air 02/24/25 10:00 98.6 75 18 137/70 (92) 94 02/24/25 05:12 0.0 96 Vital signs, stable ,afebrile. Pulse Oximetry reflects adequate oxygenation. General: well developed, well nourished. Awake , alert, and oriented x4, resting comfortably in the bed, in no acute distress . Skin: Warm, dry, no pallor, no rash or petechiae. HEENT: Atraumatic, normocephalic, EOMI, anicteric sclera B; pink conjunctiva; PERRLA, normal oropharynx, moist oral and nasal mucosa. Tympanic membrane , nose , throat clear. Neck: Trachea midline. Supple, full range of motion, no JVD, bruit , hepatojugular reflex , lymphadenopathy or masses, or other lesions Cardiac: Regular rhythm, regular rate no murmurs, rubs, or gallops. Normal S1 and S2, no S3 noticed. PMI is normal. Respiratory: Equal breath sounds bilaterally, no tachypnea; lungs clear to auscultation bilaterally, no wheezing ,rub or rales, or crackles. Chest wall is symmetric and without deformity. No signs of trauma. Chest wall is nontender. No signs of respiratory distress. Resonance is normal upon percussion bilaterally. Gastrointestinal: Abdomen symmetric, non-distended, soft, non-tender, dressing clean dry intact, normal bowel sounds x4 quadrant, normoactive, no hepatosplenomegaly , no masses , no bruit, no flank pain bilaterally. No voluntary guarding, rebound, or rigidity. No tenderness to percussion. No pulsatile masses. Equal femoral pulses. No Tucker's sign or McBurney point tenderness. Back; no CVA tenderness bilaterally, no deformities. Neck and back are without deformity as well. No tenderness noted on palpation of the spinous processes. Spinous processes are midline. Cervical, thoracic, and lumbar paraspinal muscles are not tender and are without spasm. Musculoskeletal: Extremities, normal range of motion, non-tender, muscle strength 5/5 x 4. Negative Homans signs bilaterally on lower extremity. Distal pulses full symmetrical, no clubbing, cyanosis , edema. Neurological: Speech is clear, alert, and oriented x 4. No motor or sensory deficit, deep tendon reflexes normal, cerebellar intact. Cranial nerves II-XII intact. Psych: Alert and or appropriate, normal affect. Vascular: Good distal pulses, which are equal x4; capillary refill less than 2 seconds. Lymphatic, no lymphadenopathy. Result Diagram: 02/24/258 02/24/25437 Coagulation Studies Laboratory Tests Test 02/21/25 08:34 Prothrombin Time 10.4 SECONDS (9.0-12.0) INR International Normalized Ratio 1.0 INR Activated Partial Thromboplast Time 24 SECONDS (22-32) Coagulation Comments Problem\Assessment\Plan Assessment Acute abdominal pain Nausea Incarcerated periumbilical hernia status post repair, postoperative day 3. Chronic constipation in exacerbation Status post failed inguinal hernia repair with mesh Hypertension uncontrolled Morbid obesity BMI 39 Mild leukocytosis Dehydration associated with ketonuria Additional comorbidities, history of cholecystectomy hysterectomy hiatal hernia, diverticulosis Plan IV fluids keep patient well hydrated euvolemic Patient medical conditions treated by surgeon Pain control IV analgesics IV Protonix Laxatives and Reglan Additional lab work pending PT evaluation and treatment I reconciled home medications DVT gastropathy prophylaxis addressed Sepsis Screening Reassessment Date: Feb 24, 2025 Date of Service: Feb 24, 2025 Billing Provider: KEVIN MARTINEZ MD Common Visit Codes: [id number] INP/OBS CARE(HIGH) KEVIN MARTINEZ MD Feb 24, 2025 20:27
[2025-02-24 22:00] VITALS: BP 147/65; PULSE 76; RESP 17; TEMP 99.3; O2SAT 96
[2025-02-25 05:04] LABS: MEAN PLATELET VOLUME 8.6 FL (7.4-10.4); RED CELL DISTRIBUTION WIDTH 13.4 % (11.5-14.5)
[2025-02-25 05:21] LABS: CREATININE 0.69 MG/DL (0.40-0.90); TOTAL CARBON DIOXIDE 25.8 MMOL/L (24-32); eCRCL 80 ML/MIN; eGFR 87 ML/MIN
[2025-02-25 06:30] VITALS: BP 114/57; PULSE 75; RESP 18; TEMP 98.8; O2SAT 95
[2025-02-25 10:30] VITALS: BP 126/65; PULSE 82; RESP 17; TEMP 98.2; O2SAT 96
[2025-02-25] MEDS ORDERED: potassium Cl 20 mEq SR tablet PO PRN (10:50)
[2025-02-25] MEDS ORDERED: magnesium Cl slow-release 64mg tablet PO PRN (10:50)
[2025-02-25] MEDS ORDERED: magnesium sulf-water 4G/100mL 100 ML IV PRN (10:50)
[2025-02-25] MEDS ORDERED: magnesium sulf-water 2g/50mL 50 ML IV PRN (10:50)
[2025-02-25] MEDS ORDERED: potassium Cl 40MEQ/1/2NS 520ml 520 ML IV PRN (10:50)
[2025-02-25] MEDS: potassium Cl 20 mEq SR tablet PO PRN (11:06)
[2025-02-25] MEDS ORDERED: ONDA-243 PO (13:52)
[2025-02-25] MEDS ORDERED: POTA-205 PO (13:52)
[2025-02-25] MEDS ORDERED: METO5TAB85 PO (13:52)
--- NOTE | 2025-02-25 19:54 | DISCHARGE SUMMARY ---
Discharge Summary Providers to CC Today, cleared for discharge by surgeon ~ Discharge Summary Assessment Acute abdominal pain Nausea Incarcerated periumbilical hernia, status post hernia repair postoperative day four Small-bowel obstruction Chronic constipation in exacerbation Status post failed inguinal hernia repair with mesh Hypertension uncontrolled Morbid obesity BMI 39 Mild leukocytosis Dehydration associated with ketonuria Additional comorbidities, history of cholecystectomy hysterectomy hiatal hernia, diverticulosis Admission Diagnosis: recurrent umbilical hernia with sbo Admission Diagnosis Comment: Acute abdominal pain Nausea Incarcerated periumbilical hernia, status post hernia repair postoperative day four Small-bowel obstruction Chronic constipation in exacerbation Status post failed inguinal hernia repair with mesh Hypertension uncontrolled Morbid obesity BMI 39 Hospital Course DATE OF ADMISSION: February 21, 2025 DATE OF DISCHARGE: February 25, 2025 Discharge Diagnosis\Comment: Acute abdominal pain Nausea Incarcerated periumbilical hernia, status post hernia repair postoperative day four Small-bowel obstruction Chronic constipation in exacerbation Status post failed inguinal hernia repair with mesh Hypertension uncontrolled Morbid obesity BMI 39 Operations\Procedures: Umbilical hernia repair Consultants: General surgeon Complications: No complications Condition on DC: Stable Discharge Summary: This is a 59 year old female, relatively in good health on no home medication with history over inguinal hernia repair which failed, history of hypertension uncontrolled, morbid obesity BMI 39, chronic constipation, status post cholecystectomy hysterectomy, hiatal hernia, diverticulosis, presented today to emergency department chief complaint abdominal pain associated with nausea and constipation; in addition patient reports abdominal pain since last night. She has a history of a failed hernia mesh repair (repair was done in [place] about eight years ago, began having episodes of herniation around five years ago). The hernia normally is easily reducible, but she has not been able to reduce it since the pain started (about 10:00 p.m. yesterday). Denies fever, reports nausea but no vomiting, and denies diarrhea, cough, shortness of breath.She last ate yesterday about 3:00 a.m. in the afternoon. Last bowel movement was yesterday. Moment she was evaluated by physician including CT abdomen pelvis completed, diagnosed with a small-bowel obstruction, incarcerated [place] umbilical hernia, and after consultation with the general surgeon decision was made to admit patient for further evaluation and treatment including to be taken to OR for hernia repair. No additional complaint or concern. After admission patient was extensively evaluated hernia repair completed, today she is feeling fine medication reconciled we will be discharged in stable condition, follow-up PCP surgeon in one week, today on physical exam Vital signs, stable ,afebrile. Pulse Oximetry reflects adequate oxygenation. General: well developed, well nourished. Awake , alert, and oriented x4, resting comfortably in the bed, in no acute distress . Skin: Warm, dry, no pallor, no rash or petechiae. HEENT: Atraumatic, normocephalic, EOMI, anicteric sclera B; pink conjunctiva; PERRLA, normal oropharynx, moist oral and nasal mucosa. Tympanic membrane , nose , throat clear. Neck: Trachea midline. Supple, full range of motion, no JVD, bruit , hepatojugular reflex , lymphadenopathy or masses, or other lesions Cardiac: Regular rhythm, regular rate no murmurs, rubs, or gallops. Normal S1 and S2, no S3 noticed. PMI is normal. Respiratory: Equal breath sounds bilaterally, no tachypnea; lungs clear to auscultation bilaterally, no wheezing ,rub or rales, or crackles. Chest wall is symmetric and without deformity. No signs of trauma. Chest wall is nontender. No signs of respiratory distress. Resonance is normal upon percussion bilaterally. Gastrointestinal: Abdomen symmetric, non-distended, soft, non-tender, dressing clean dry intact, normal bowel sounds x4 quadrant, normoactive, no hepatosplenomegaly , no masses , no bruit, no flank pain bilaterally. No voluntary guarding, rebound, or rigidity. No tenderness to percussion. No pulsatile masses. Equal femoral pulses. No Tucker's sign or McBurney point tenderness. Back; no CVA tenderness bilaterally, no deformities. Neck and back are without deformity as well. No tenderness noted on palpation of the spinous processes. Spinous processes are midline. Cervical, thoracic, and lumbar paraspinal muscles are not tender and are without spasm. Musculoskeletal: Extremities, normal range of motion, non-tender, muscle strength 5/5 x 4. Negative Homans signs bilaterally on lower extremity. Distal pulses full symmetrical, no clubbing, cyanosis , edema. Neurological: Speech is clear, alert, and oriented x 4. No motor or sensory deficit, deep tendon reflexes normal, cerebellar intact. Cranial nerves II-XII intact. Psych: Alert and or appropriate, normal affect. Vascular: Good distal pulses, which are equal x4; capillary refill less than 2 seconds. Lymphatic, no lymphadenopathy. *Problems/Diagnosis: (1) Incarcerated hernia Status: Acute Total Time Spent on D/C: > 30 Minutes Date of Service: Feb 25, 2025 Billing Provider: KEVIN MARTINEZ MD Common Visit Codes: [id number] DISCH DAY >30min KEVIN MARTINEZ MD Feb 25, 2025 19:54
[2025-02-25] MEDS ORDERED: K and/or MAG REPLACEMENT MC SCH (20:00)
--- NOTE | 2025-02-25 20:42 | PROGRESS NOTE ---
Progress Note ID Providers to CC ~ Progress Note Progress Note: doing well/ok for dc VANESA PURVIS MD Feb 25, 2025 20:42
== END 2025-02-25 17:10 | disposition home or self-care (01) | DRG 337 ==
LOC: ER 04:00 → ED HOLD 08:20 → SUR 3N 14:35
PROVIDERS: ADMIT Family Medicine; ATTEND Family Medicine
PROC: 0WQF4ZZ Repair Abdominal Wall, Percutaneous Endoscopic Approach (ICD-10-PCS; 2025-02-21)
PROC: 8E0W4CZ Robotic Assisted Procedure of Trunk Region, Percutaneous Endoscopic Approach (ICD-10-PCS; 2025-02-21)
PROC: BW211ZZ Computerized Tomography (CT Scan) of Abdomen and Pelvis using Low Osmolar Contrast (ICD-10-PCS; 2025-02-21)
PROC: 0DNU4ZZ Release Omentum, Percutaneous Endoscopic Approach (ICD-10-PCS; principal; 2025-02-21 10:33)
DX: K42.0 Umbilical hernia with obstruction, without gangrene (principal); D72.829 Elevated white blood cell count, unspecified; E66.01 Morbid (severe) obesity due to excess calories; I10 Essential (primary) hypertension; Z90.49 Acquired absence of other specified parts of digestive tract; K66.0 Peritoneal adhesions (postprocedural) (postinfection); E86.0 Dehydration; Z68.39 Body mass index [BMI] 39.0-39.9, adult; Z90.710 Acquired absence of both cervix and uterus
CPT/HCPCS: 99285; Z7506; Z7508; 36415; 71045; 74018; 74177; 80053; 81001; 81025; 83605; 83690; 83735; 83880; 84100; 84132; 85025; 85610; 85730; 87081; 93005; A4215; A4615; A4618; A6258; G0378; J0131; J0666; J0690; J0694; J1100; J1171; J2250; J2405; J2704; J2710; J3010; J3373; J3480; J3490; J7030; J7120; Q0163; Q9967